=== PATIENT | male | born 1955 | race Caucasian/White ===

== ENCOUNTER → 2021-06-16 13:43 | Outpatient (CLI) | payer MEDICARE, OTHER, SELFPAY ==
[2021-06-16 14:53] LABS: Alanine Aminotransferase 30 IU/L (<50); Albumin 4.3 g/dL (3.5-5.0); Albumin Globulin Ratio 1.8 (1.0-2.8); Alkaline Phosphatase 57 U/L (38-126); Aspartate Aminotransferase 36 IU/L (17-59); Bilirubin Total 2.9 mg/dL (0.2-1.3); Bilirubin Unconjugated 2.6 mg/dL (0.0-1.1); Globulin 2.4 g/dL (1.7-4.1); HEMOLYSIS 19 (0-50); Total Protein 6.7 g/dL (6.3-8.2)
== END ==
PROVIDERS: Family Provider Family Medicine; PCP Family Medicine; Referring Provider Physician Assistant; Visit Provider Physician Assistant
DX: L71.8 Other rosacea (principal); L30.8 Other specified dermatitis; L57.8 Other skin changes due to chronic exposure to nonionizing radiation; X32.XXXA Exposure to sunlight, initial encounter; L82.1 Other seborrheic keratosis; L81.4 Other melanin hyperpigmentation; D22.5 Melanocytic nevi of trunk; D22.72 Melanocytic nevi of left lower limb, including hip; B35.3 Tinea pedis; B35.1 Tinea unguium
CPT/HCPCS: 36415; 80076

== ENCOUNTER → 2021-08-03 09:54 | Outpatient (CLI) | payer MEDICARE, OTHER, SELFPAY ==
[2021-08-03 20:28] LABS: Alanine Aminotransferase 31 IU/L (<50); Albumin 4.2 g/dL (3.5-5.0); Albumin Globulin Ratio 1.8 (1.0-2.8); Alkaline Phosphatase 56 U/L (38-126); Aspartate Aminotransferase 35 IU/L (17-59); Bilirubin Total 1.3 mg/dL (0.2-1.3); Bilirubin Unconjugated 1.1 mg/dL (0.0-1.1); Globulin 2.3 g/dL (1.7-4.1); HEMOLYSIS < 15 (0-50); Total Protein 6.5 g/dL (6.3-8.2)
== END ==
PROVIDERS: Family Provider Family Medicine; PCP Family Medicine
DX: B35.1 Tinea unguium (principal)
CPT/HCPCS: 80076

== ENCOUNTER → 2021-09-08 13:09 | Outpatient (CLI) | payer MEDICARE, OTHER, SELFPAY ==
[2021-09-08 19:09] LABS: Alanine Aminotransferase 31 IU/L (<50); Albumin 4.4 g/dL (3.5-5.0); Albumin Globulin Ratio 1.8 (1.0-2.8); Alkaline Phosphatase 65 U/L (38-126); Aspartate Aminotransferase 42 IU/L (17-59); Bilirubin Total 2.1 mg/dL (0.2-1.3); Globulin 2.5 g/dL (1.7-4.1); HEMOLYSIS 16 (0-50); Total Protein 6.9 g/dL (6.3-8.2)
== END ==
PROVIDERS: Family Provider Family Medicine; PCP Family Medicine; Referring Provider Physician Assistant; Visit Provider Physician Assistant
DX: B35.1 Tinea unguium (principal)
CPT/HCPCS: 80076

== ENCOUNTER → 2021-10-04 09:04 | Outpatient (CLI) | payer MEDICARE, OTHER, SELFPAY ==
[2021-10-04 18:46] LABS: Alanine Aminotransferase 29 IU/L (<50); Albumin 4.4 g/dL (3.5-5.0); Albumin Globulin Ratio 1.8 (1.0-2.8); Alkaline Phosphatase 52 U/L (38-126); Aspartate Aminotransferase 33 IU/L (17-59); BUN Creatinine Ratio 14.4 (6-22); Bilirubin Total 1.6 mg/dL (0.2-1.3); Blood Urea Nitrogen 17 mg/dL (9-20); Calcium 9.7 mg/dL (8.4-10.2); Carbon Dioxide 30 mmol/L (22-32); Chloride 102 mmol/L (98-107); Cholesterol 180 mg/dL (140-199); Estimated Glomerular Filt Rate > 60.0 mL/min (>60); Globulin 2.4 g/dL (1.7-4.1); Glucose 87 mg/dL (80-110); HDL Cholesterol 67 mg/dL (40-60); HEMOLYSIS < 15 (0-50); LDL Cholesterol Calculated 99 mg/dL (<100); Potassium 4.5 mmol/L (3.4-5.1); Sodium 140 mmol/L (137-145); Total Protein 6.8 g/dL (6.3-8.2); Triglycerides 72 mg/dL (35-150)
[2021-10-04 19:15] LABS: Prostate Specific Antigen Scrn 2.27 ng/mL (0.1-4.0)
== END ==
PROVIDERS: Family Provider Family Medicine; PCP Family Medicine; Visit Provider Family Medicine
DX: R07.89 Other chest pain (principal); Z12.5 Encounter for screening for malignant neoplasm of prostate; Z13.220 Encounter for screening for lipoid disorders; E80.4 Gilbert syndrome
CPT/HCPCS: 80053; 80061; G0103

== ENCOUNTER → 2022-06-07 13:09 | Outpatient (CLI) | payer MEDICARE, OTHER, SELFPAY ==
[2022-06-07 18:38] LABS: Add Manual Diff / Slide Review NO; Basophils Absolute Auto 0 /uL (0-100); Basophils Percent Auto 0.9 % (0-2); Eosinophils Absolute Auto 100 /uL (0-450); Eosinophils Percent Auto 1.7 % (2-4); Hematocrit 43.7 % (41-53); Hemoglobin 15.3 g/dL (13.5-17.5); Lymphocytes Absolute Auto 1400 /uL (1100-4500); Lymphocytes Percent Auto 34.3 % (25-40); Mean Corpuscular HGB Conc 34.9 % (30-36); Mean Corpuscular Hemoglobin 31.7 PG (26-34); Mean Corpuscular Volume 90.8 fL (80-100); Monocytes Absolute Auto 400 /uL (0-900); Neutrophils Absolute Auto 2200 /uL (1500-7000); Neutrophils Percent Auto 53.1 % (50-75); Platelet Count 224 X10^3/uL (150-400); Red Blood Cell Count 4.81 X10^6/uL (4.5-5.9); Red Cell Distribution Width 14.3 % (11.6-14.8); White Blood Cell Count 4.2 X10^3/uL (4.5-11.0)
[2022-06-07 18:46] LABS: Alanine Aminotransferase 25 IU/L (<50); Albumin 4.2 g/dL (3.5-5.0); Albumin Globulin Ratio 1.8 (1.0-2.8); Alkaline Phosphatase 55 U/L (38-126); Aspartate Aminotransferase 32 IU/L (17-59); BUN Creatinine Ratio 19.8 (6-22); Bilirubin Total 2.9 mg/dL (0.2-1.3); Blood Urea Nitrogen 20 mg/dL (9-20); Calcium 9.1 mg/dL (8.4-10.2); Carbon Dioxide 27 mmol/L (22-32); Chloride 104 mmol/L (98-107); Estimated Glomerular Filt Rate > 60 mL/min (>60); Globulin 2.4 g/dL (1.7-4.1); Glucose 95 mg/dL (80-110); HEMOLYSIS 17 (0-50); Potassium 4.6 mmol/L (3.4-5.1); Sodium 139 mmol/L (137-145); Total Protein 6.6 g/dL (6.3-8.2); Uric Acid 5.4 mg/dL (3.5-8.5)
[2022-06-07 20:34] LABS: Erythrocyte Sedimentation Rate 1 MM/HR (0-15)
== END ==
PROVIDERS: Family Provider Family Medicine; PCP Family Medicine; Visit Provider Physician Assistant
DX: K26.9 Duodenal ulcer, unspecified as acute or chronic, without hemorrhage or perforation (principal); M79.676 Pain in unspecified toe(s)
CPT/HCPCS: 80053; 84550; 85025; 85651

== ENCOUNTER → 2023-03-05 11:12 | Outpatient (CLI) | payer MEDICARE, OTHER, SELFPAY ==
[2023-03-05 20:08] LABS: Cholesterol 220 mg/dL (140-199); Glucose 90 mg/dL (80-110); HDL Cholesterol 56 mg/dL (40-60); LDL Cholesterol Calculated 146 mg/dL (<100); Triglycerides 89 mg/dL (35-150)
[2023-03-05 20:37] LABS: Prostate Specific Antigen Scrn 2.79 ng/mL (0.1-4.0)
[2023-03-05 20:56] LABS: Hep C Virus Ab w/Reflex Quant NEGATIVE s/c (NEGATIVE)
== END ==
PROVIDERS: Family Provider Family Medicine; PCP Family Medicine; Visit Provider Family Medicine
DX: Z00.00 Encounter for general adult medical examination without abnormal findings (principal); L40.9 Psoriasis, unspecified; Z13.1 Encounter for screening for diabetes mellitus; Z12.5 Encounter for screening for malignant neoplasm of prostate; Z11.59 Encounter for screening for other viral diseases
CPT/HCPCS: 80061; 82947; 86803; G0103

== ENCOUNTER → 2023-04-02 16:47 | Outpatient (CLI) | payer MEDICARE, OTHER, SELFPAY ==
--- NOTE | 2023-04-02 16:49 | DI.MRI.S_ITS ---
PROCEDURE: MR BRAIN (IAC) WWO CON INDICATIONS: Asymmetric Hearing Loss TECHNIQUE: Noncontrast sagittal T1 spin echo, axial FLAIR, axial gradient echo, axial diffusion and ADC through the brain. Axial thin-slice 3D CISS, coronal TruFISP, axial T1 spin echo with fat saturation through the internal auditory canals. After the administration of contrast, thin slice axial and coronal T1 spin echo with fat saturation through the internal auditory canals, and axial and coronal and sagittal T1 spin echo with fat saturation through the brain. COMPARISON: None. FINDINGS: Image quality: Excellent. Cerebellopontine angles: No cerebellopontine angle masses. Inner ear structures appear normally formed. No suspicious enhancement in the internal auditory canal or along the course of the 7th cranial nerve. CSF spaces: Ventricles are normal in size and shape. No extra-axial fluid collections. Basal cisterns are patent. Brain: No intracranial bleeds or mass effects. Ibarra-white matter interface is intact. No abnormal intracranial enhancement. Diffusion weighted images demonstrate no acute ischemic insults. Brainstem appears normal. Normal intravascular flow voids are present. Skull and face: Calvarial marrow signal is normal. Orbits appear normal. Sinuses: Moderate mucosal thickening is seen within the maxillary sinuses. Mild mucosal thickening is seen elsewhere within the paranasal sinuses. IMPRESSION: No significant abnormality is seen. Specifically, no masses or abnormal enhancement are seen within the cerebellopontine angle cisterns or within the internal auditory canals. Dictated by: Chet Hartman M.D. on 04/02/2023 at 17:05 Approved by: Chet Hartman M.D. on 04/02/2023 at 17:06
== END ==
PROVIDERS: Family Provider Family Medicine; PCP Family Medicine; Referring Provider Family Medicine; Visit Provider Family Medicine
DX: H90.3 Sensorineural hearing loss, bilateral (principal)
CPT/HCPCS: 70553; A9579

== ENCOUNTER → 2024-07-24 14:29 | Outpatient (CLI) | payer MEDICARE, OTHER, SELFPAY | PROVIDERS: Family Provider Family Medicine; PCP Family Medicine; Visit Provider Physician Assistant Medical | DX: L08.9 Local infection of the skin and subcutaneous tissue, unspecified (principal) | CPT/HCPCS: 87070; 87075; 87077; 87147; 87186; 87205 ==

== ENCOUNTER → 2024-10-27 10:59 | Outpatient (CLI) | payer MEDICARE, OTHER, SELFPAY ==
[2024-10-27 18:50] LABS: Cholesterol 228 mg/dL (140-199); Glucose 77 mg/dL (80-110); HDL Cholesterol 59 mg/dL (40-60); LDL Cholesterol Calculated 157 mg/dL (<100); Triglycerides 59 mg/dL (35-150)
[2024-10-27 19:20] LABS: Prostate Specific Antigen Scrn 3.83 ng/mL (0.1-4.0)
[2024-10-27 19:42] LABS: Hep C Virus Ab w/Reflex Quant NEGATIVE s/c (NEGATIVE)
== END ==
PROVIDERS: Family Provider Family Medicine; PCP Family Medicine; Visit Provider Family Medicine
DX: Z13.1 Encounter for screening for diabetes mellitus (principal); Z12.5 Encounter for screening for malignant neoplasm of prostate; Z13.6 Encounter for screening for cardiovascular disorders; Z13.220 Encounter for screening for lipoid disorders; Z11.59 Encounter for screening for other viral diseases
CPT/HCPCS: 80061; 82947; 86803; G0103

== ENCOUNTER 2025-05-07 09:14 | Day surgery (SDC) | payer MEDICARE, OTHER, SELFPAY ==
--- NOTE | 2025-05-07 | PATH_ITS ---
[facility] Accession Number: [id number] No. of containers..01 Tissue . 01 Material submitted: . colon - SIGMOID POLYP . 01 Diagnosis: SIGMOID COLON POLYP: Hyperplastic polyp. MRV 05/13/2025 1231 Local . 01 Electronically signed: . Salbador Minaya MD, PhD, Pathologist NPI- [id number] . 01 Gross description: . SIGMOID POLYP: Received in formalin is 1 fragment(s) of ponce, soft tissue measuring 0.3 x 0.3 x 0.2 cm submitted entirely in 1 cassette(s) /KEVIN 05/09/2025 0027 Local . 01 Pathologist provided ICD-10: K63.5 . 01 CPT . 057987 Specimen Comment: A courtesy copy of this report has been sent to [phone] Performed at: [address] [facility] [id number] MD Albert Tavares MD Phone: [phone]
[2025-05-07] MEDS: LACTATED RINGERS 1,000 ML 42 ML IV (11:01)
--- NOTE | 2025-05-07 11:10 | PM.HP.IH.1 ---
History of Present Illness History of Present Illness Date Patient Seen: 05/07/25 Time Patient Seen: 11:11 Chief complaint: Colonoscopy Narrative: Chinmay is a 69 year old man who presents for a colonoscopy. His first was in 2008 and one polyp was removed. He was told to come back for another scope in 5 years. That time he had no polyps and was given a 10 year interval. [facility] Medical History (Updated 01/14/25 @ 10:52 by Timi Arndt MD) Abnormal chest xray TIA (transient ischemic attack) (~2018) Foot pain (~2004) Gastric ulcer (~2013) Empyema H/O atrial tachycardia Bronchiectasis without complication Recurrent pneumonia Surgical History (Updated 10/03/21 @ 21:06 by Nanci Thompson) Anesthesia History of umbilical hernia repair (~1989) History of surgery (~2014) Family History (Updated 10/03/21 @ 21:08 by Nanci Thompson) Father Pulmonary edema Mental health problem Stroke Mother Stroke Sister Cancer Grandfather Diabetes mellitus History of heart disease Meds Home Medications and Allergies Home Medications ?Medication ?Instructions ?Recorded ?Confirmed ?Type cholecalciferol (vitamin D3) 25 25 mcg PO DAILY 09/12/21 05/07/25 History mcg (1,000 unit) tablet multivitamin 1 tab PO DAILY 09/12/21 05/07/25 History Allergies Allergy/AdvReac Type Severity Reaction Status Date / Time pollen extracts Allergy Unknown Verified 01/14/25 10:11 Exam Const General: healthy appearing Assessment & Plan Assessment and plan (1) History of colonic polyps: Status: Acute Plan Colonoscopy Time-Based Coding :: [TOTAL MINUTES] spent with patient and on the chart (including review of chart, obtaining history, exam, reviewing outside data, placing orders, documenting exam and treatment plan, and counseling patient) on [DATE]. 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
[2025-05-07 11:16] VITALS: BP 114/73; PULSE 65; RESP 15; TEMP 36.1; O2SAT 98
--- NOTE | 2025-05-07 12:07 | PM.OP.COLON ---
Operative Date/Time/Diagnoses Date of procedure: 05/07/25 Time of procedure: 12:08 Pre-op diagnosis: Colon cancer screening Post-op diagnosis: same Procedure & Clinicians Study performed: Colonoscopy Same procedure as scheduled: No Surgeon: Wiliam Wood Procedure Notes Procedure in detail: Surgeon: Wiliam Wood MD Anesthesia: Jami Denton CRNA Procedure: The patient was brought to the endoscopy suite, placed in left lateral decubitus position. The patient was connected to monitoring devices. A time-out was performed. Sedation was administered. Once the patient was adequately sedated, a digital rectal exam was performed and was normal. The scope was then inserted and advanced to the cecum where the appendiceal orifice was identified and photographed. The scope was then slowly withdrawn over greater than 6 minutes. The mucosa was thoroughly inspected. There was a 3 mm polyp in the distal sigmoid colon removed with a cold snare. There was scattered sigmoid diverticulosis. The scope was retroflexed in the rectum. No other abnormalities were found. The scope was straightened and removed. The patient was awakened and brought to recovery. Scope withdrawal time: 8 minutes Sedation time: 11 minute EBL: 3 mL Findings: 3 mm polyp in the distal sigmoid colon, diverticulosis Post-procedure Disposition: PACU
[2025-05-07 12:12] VITALS: BP 90/67; PULSE 91; RESP 16; TEMP 36.2; O2SAT 98
[2025-05-07 12:17] VITALS: BP 90/60; PULSE 83; RESP 16; TEMP 36.2; O2SAT 98
[2025-05-07 12:50] VITALS: BP 101/65; PULSE 79; RESP 15; TEMP 36.4; O2SAT 99
== END 2025-05-07 13:08 | disposition home or self-care (01) ==
PROVIDERS: Family Provider Family Medicine; PCP Family Medicine; Referring Provider Surgery; Visit Provider Surgery
PROC: 0DJD8ZZ Inspection of Lower Intestinal Tract, Via Natural or Artificial Opening Endoscopic (ICD-10-PCS; CPT 45378; principal; 2025-05-07 10:30)
DX: Z12.11 Encounter for screening for malignant neoplasm of colon (principal); Z86.0100 Personal history of colon polyps, unspecified; K57.30 Diverticulosis of large intestine without perforation or abscess without bleeding; K63.5 Polyp of colon
CPT/HCPCS: 45385; J2405; J2704